=== PATIENT | female | born 1960 | race Caucasian/White ===

== ENCOUNTER 2021-03-11 21:26 | Day surgery (SDCO) | payer OTHER ==
[2021-03-11 21:46] LABS: EOSINOPHIL 5.6 % (0-5); HCT 51.1 % (37.0-47.0); HGB 16.3 g/dl (12.5-16.0); LYMPHOCYTE 26.7 % (15-48); MCH 25.7 pg (25.0-31.0); MCHC 31.9 g/dL (32.0-36.0); MCV 80.5 fL (78.0-100.0); MONOCYTE 7.9 % (0-12); NEUTROPHIL 58.5 % (41-80); NRBC 0; PLT 203 K/uL (150-400); RBC 6.35 M/uL (4.20-5.40); RDW 16.3 % (11.5-14.0); WBC 10.5 K/uL (4.0-10.5)
[2021-03-11 21:53] LABS: INR 1.02 (0.9-1.2); PROTHROMBIN TIME 12.7 SECONDS (11.4-13.6); PTT 40.8 SECONDS (22.2-34.7)
[2021-03-11 22:04] LABS: ALBUMIN 3.5 g/dL (3.4-5.0); BILIRUBIN - TOTAL 0.3 mg/dL (0.2-1.0); BUN/CREAT RATIO (CALC) 25.7 RATIO; CREATININE 0.74 mg/dL (0.51-0.95); GLOBULIN (CALCULATION) 4.4 g/dL; TOTAL PROTEIN 7.9 g/dL (6.4-8.2)
[2021-03-12] MEDS ORDERED: BAYER CHEWABLE81 MG PO (05:00)
[2021-03-12] MEDS ORDERED: PRINIVIL10 MG PO (05:02)
[2021-03-12] MEDS ORDERED: PLAVIX75 MG PO (05:02)
[2021-03-12 05:16] LABS: CHOLESTEROL 244 mg/dL (<200); HDL 61 mg/dL (40-60); LDL - DIRECT 164 mg/dL (<100); TRIGLYCERIDES 82 mg/dL (<150)
--- NOTE | 2021-03-12 05:33 | NUR ---
0520 Troponin of 0.076 reported to Yandy Soria.
[2021-03-12] MEDS ORDERED: NITROQUIK SL0.4 MG SL ×2 (13:13→13:14)
== END 2021-03-12 13:50 | disposition home or self-care (01) ==
LOC: FER 21:26 → FMS 03-12 02:30
PROVIDERS: Emergency Medicine Emergency Medical Services; Nurse Practitioner; ADMIT Allergy & Immunology Allergy
DX: R07.2 Precordial pain (principal); I25.2 Old myocardial infarction; I25.10 Atherosclerotic heart disease of native coronary artery without angina pectoris; I10 Essential (primary) hypertension; F17.210 Nicotine dependence, cigarettes, uncomplicated; I08.0 Rheumatic disorders of both mitral and aortic valves; Z79.02 Long term (current) use of antithrombotics/antiplatelets; Z79.82 Long term (current) use of aspirin; Z79.899 Other long term (current) drug therapy; Z95.5 Presence of coronary angioplasty implant and graft; Z20.822 Contact with and (suspected) exposure to COVID-19
CPT/HCPCS: 36415; 71045; 80053; 80061; 83735; 84484; 85025; 85610; 85730; 93005; 94010; 94762; G0378; J1650; U0002